=== PATIENT | male | born 1975 | race Two or more races ===

== ENCOUNTER 2018-09-25 15:54 | Emergency (ER) | payer SELFPAY ==
[~2018-09-25] VITALS: Ht 167.6 cm; Wt 79.8 kg
[2018-09-25 16:10] VITALS: BP 174/87
[2018-09-25] MEDS ORDERED: HYDR25SU18 RC (16:18)
[2018-09-25] MEDS ORDERED: LIDO30CR TP (16:18)
[2018-09-25] MEDS ORDERED: DOCU-109 PO (16:18)
--- NOTE | 2018-09-25 16:18 | PHYS DOC ---
Past Medical History Past Medical History: No Pertinent History Past Surgical History: No Surgical History Alcohol Use: None Drug Use: None Adult General Chief Complaint Chief Complaint: ABSCESS HPI HPI Patient is a 43 year old male with no significant medical history who presents to the ED today complaining of an abscess on his rectum for one week. Patient states he squeezed his butt cheeks yesterday and it drained blood. Denies any fever. Review of Systems Review of Systems Constitutional: Denies fever or chills [] Musculoskeletal: Denies back pain or joint pain [] Integument: Reports rectal abscess Neurologic: Denies headache, focal weakness or sensory changes [] All other systems were reviewed and found to be within normal limits, except as documented in this note. Allergies Allergies Allergies Coded Allergies Type Severity Reaction Last Updated Verified No Known Drug Allergies 12/24/14 No Physical Exam Physical Exam Constitutional: Well developed, well nourished, no acute distress, non-toxic appearance. [] Abdomen: Bowel sounds normal, soft, no tenderness, no masses, no pulsatile masses. [] Skin: Right exterior rectum noted for peanut size lesion consistent with a hemorrhoids. The hemorrhoid is nonthrombosed. This is an external hemorrhoid. No internal hemorrhoids noted. Off note patient is covered with scars from a previous rash Back: No tenderness, no CVA tenderness. [] Extremities: No tenderness, no cyanosis, no clubbing, ROM intact, no edema. [] Neurologic: Alert and oriented X 3, normal motor function, normal sensory function, no focal deficits noted. [] Psychologic: Affect normal, judgement normal, mood normal. [] EKG EKG [] Radiology/Procedures Radiology/Procedures [] Course & Med Decision Making Course & Med Decision Making Pertinent Labs and Imaging studies reviewed. (See chart for details) This is a 43-year-old male patient presenting to the ED today with a physical exam consistent of a nonthrombosed external hemorrhoid. Sitz baths were recommended. Discharged with docusate sodium, Anusol suppositories, and lidocaine cream. Importance of increasing dietary fiber intake also emphasized. Follow-up with primary care doctor in 1-2 weeks or general surgery. Provided return precautions. Dragon Disclaimer Dragon Disclaimer This electronic medical record was generated, in whole or in part, using a voice recognition dictation system. Departure Departure Impression: Primary Impression: Hemorrhoids Disposition: HOME, SELF-CARE Condition: STABLE Referrals: NO PCP (PCP) BERNARD HAIRSTON MD follow up in 1 week Patient Instructions: Hemorrhoids Additional Instructions: Your evaluation in the emergency room was noted for hemorrhoids. Please use sitz baths twice a day. Use the prescribed medications as ordered. Consider increasing your dietary fiber intake as well as water intake Scripts Lidocaine/Prilocaine (LIDOCAINE-PRILOCAINE CREAM) 30 Gm Cream..g. 1 HEBER TP UD, #30 GM 1 Refill Prov: NAHUM HOLBROOK APRN 09/25/18 Docusate Sodium (COLACE) 100 Mg Capsule 1 CAP PO BID, #20 CAP Prov: NAHUM HOLBROOK APRN 09/25/18 Hydrocortisone Acetate (ANUSOL-HC) 25 Mg Supp.rect 1 SUPP RC BID, #14 SUPP Prov: NAHUM HOLBROOK APRN 09/25/18 Problem Qualifiers Primary Impression: Hemorrhoids Hemorrhoid type: other Qualified Codes: K64.8 - Other hemorrhoids NAHUM HOLBROOK APRN September 25, 2018 16:18
== END 2018-09-25 16:46 | disposition home or self-care (01) ==
LOC: ER 15:54
DX: K64.4 Residual hemorrhoidal skin tags (principal); K61.1 Rectal abscess
CPT/HCPCS: 99283